=== PATIENT | male | born 1945 | race Caucasian/White ===

== ENCOUNTER 2017-04-20 15:21 | Emergency (ER) | payer OTHER, MEDICAID ==
[~2017-04-20] VITALS: Ht 182.9 cm; Wt 99.8 kg
[2017-04-20 15:33] VITALS: BP 154/78
[2017-04-20] MEDS ORDERED: CLINDAMYCIN 600 MG/4 ML VL IM ONE (15:45)
[2017-04-20] MEDS ORDERED: LEVOFLOXACIN 250 MG TAB PO ONE (15:45)
== END 2017-04-20 16:24 | disposition home or self-care (01) ==
LOC: EDBD 15:21 → ER 15:21
DX: H00.036 Abscess of eyelid left eye, unspecified eyelid (principal); Z88.0 Allergy status to penicillin; I10 Essential (primary) hypertension; Z90.49 Acquired absence of other specified parts of digestive tract
CPT/HCPCS: 96372

== ENCOUNTER 2019-05-06 13:22 | Inpatient (IN) | payer OTHER, MEDICAID ==
[~2019-05-06] VITALS: Ht 172.7 cm; Wt 100.9 kg
[~2019-05-06 13:22] MED LIST: MET5XLT PO; RIVA10TA PO
[2019-05-06 14:12] LABS: Basophils # (auto) 0.1 uL; Basophils % (auto) 1.1 % (0.0-2.0); Eosinophils # (auto) 0.4 uL; Eosinophils % (auto) 4.5 % (0.0-7.0); Hematocrit 42.1 % (41.0-53.0); Hemoglobin 14.1 g/dL (13.5-17.5); Lymphocytes # (auto) 2.2 uL; Lymphocytes % (auto) 24.1 % (10.0-50.0); Mean Corpuscular Hemoglobin 30.8 pg (28.0-32.0); Mean Corpuscular Hgb Conc. 33.4 g/dL (32.0-36.0); Mean Corpuscular Volume 92.1 fL (80.0-100.0); Monocytes # (auto) 0.6 uL; Neutrophils # (auto) 5.8 uL; Neutrophils % (auto) 63.3 % (37.0-80.0); Nucleated Red Blood Cells % 0.1 %; Platelet Count (auto) 229 10^3/uL (140-450); Red Blood Cells 4.57 10^6/uL (4.5-5.90); Red Cell Distribution Width 13.9 % (11.8-14.3); White Blood Cell 9.2 10^3/uL (4.4-10.8)
[2019-05-06 14:18] LABS: Albumin 3.4 g/dL (3.4-5.0); Anion Gap 4 (5-15); BUN/Creatinine Ratio 19.6; Blood Urea Nitrogen 21 mg/dL (7-18); Calcium 9.2 mg/dL (8.5-10.1); Carbon Dioxide 28 mmol/L (21-32); Chloride 106 mmol/L (98-107); GFR African American 87 mL/min; GFR Non-African American 72 mL/min; Glucose 90 mg/dL (74-106); Magnesium 2.4 mg/dL (1.6-2.6); Potassium 4.2 mmol/L (3.5-5.1); Sodium 138 mmol/L (136-145)
[2019-05-06 14:23] LABS: Alanine Aminotransferase 22 U/L (16-61); Alkaline Phosphatase 63 U/L (45-117); Aspartate Aminotransferase 20 U/L (15-37); Bilirubin, Total 0.5 mg/dL (0.2-1.0); Total Protein 7.8 g/dL (6.4-8.2)
[2019-05-06 14:39] LABS: Urine WBC None Seen /hpf (0 - 3)
[2019-05-06 15:29] LABS: Urine Bacteria NONE SEEN /hpf (None Seen); Urine Blood Negative /uL (Negative); Urine Specific Gravity 1.021 (1.001-1.035)
[2019-05-06] MEDS ORDERED: ENALAPRIL MALEATE 2.5 MG TAB PO ONE (17:30)
[2019-05-06] MEDS ORDERED: FUROSEMIDE 20 MG/2 ML VIAL IV ONE (17:30)
[2019-05-06] MEDS ORDERED: NITROGLYCERIN 0.4 MG SL TAB SL PRN (17:30)
[2019-05-06] MEDS ORDERED: MORPHINE SULF INJ 2 MG/ML SYRINGE 1ML IV PRN (17:30)
--- NOTE | 2019-05-06 19:40 | NUR ---
Telemetry admit from ER CARLOS KELLER admitted to Telemetry unit . Patient oriented to unit, room, bed, and unit policies regarding patient care and visiting hours. Patient now on continuous telemetry monitoring, tele box # 43 and telemetry reading on arrival to unit is SR 61. Patient weighed by bed scale and encouraged to call if they need something. All questions and concerns addressed, patient verbalized understanding.
[2019-05-06 20:09] VITALS: BP 183/73
[2019-05-06 22:00] VITALS: BP 163/80
[2019-05-06] MEDS ORDERED: POLYETHYLENE GLYCOL 17 GM PWDR PO ONE (22:15)
[2019-05-06 23:49] VITALS: BP 141/60
[2019-05-07 00:29] LABS: Alcohol, Urine < 3.0 mg/dL (0-5); Amphetamine Screen, Urine NEGATIVE (NEGATIVE); Barbiturate Scree,Urine NEGATIVE (NEGATIVE); Benzodiazephine Screen, Urine NEGATIVE (NEGATIVE); Cannabinoid Screen, Urine NEGATIVE (NEGATIVE); Cocaine Screen, Urine NEGATIVE (NEGATIVE); Opiate Scree,Urine NEGATIVE (NEGATIVE); Phencyclidine Screen, Urine NEGATIVE (NEGATIVE)
[2019-05-07 05:00] VITALS: BP 108/51
[2019-05-07 06:58] LABS: Basophils # (auto) 0.1 uL; Basophils % (auto) 0.7 % (0.0-2.0); Eosinophils # (auto) 0.5 uL; Eosinophils % (auto) 4.5 % (0.0-7.0); Hemoglobin 14.1 g/dL (13.5-17.5); Lymphocytes # (auto) 2.3 uL; Lymphocytes % (auto) 21.7 % (10.0-50.0); Mean Corpuscular Hemoglobin 31.1 pg (28.0-32.0); Mean Corpuscular Hgb Conc. 33.7 g/dL (32.0-36.0); Mean Corpuscular Volume 92.4 fL (80.0-100.0); Monocytes # (auto) 0.8 uL; Monocytes % (auto) 7.6 % (0.0-12.0); Neutrophils # (auto) 7.1 uL; Neutrophils % (auto) 65.5 % (37.0-80.0); Nucleated Red Blood Cells % 0.1 %; Platelet Count (auto) 232 10^3/uL (140-450); Red Blood Cells 4.55 10^6/uL (4.5-5.90); White Blood Cell 10.8 10^3/uL (4.4-10.8)
[2019-05-07 07:26] LABS: Calcium 8.8 mg/dL (8.5-10.1); Potassium 3.9 mmol/L (3.5-5.1)
[2019-05-07 07:31] LABS: BUN/Creatinine Ratio 19.8
--- NOTE | 2019-05-07 08:00 | NUR ---
Opening Shift Note Assumed care of patient, awake and alert. No S/S of distress/SOB or pain. Instructed on POC and to call for assist PRN, will continue to monitor for changes Q1hr and PRN.
[2019-05-07 09:00] VITALS: BP 130/47
[2019-05-07] MEDS: ENALAPRIL MALEATE 2.5 MG TAB PO SCH (09:44)
[2019-05-07] MEDS: FAMOTIDINE 20 MG TAB PO SCH (09:44)
--- NOTE | 2019-05-07 11:00 | NUR ---
Spoke with [employer] broadcast music librarian casework manager re: consult for information about advance directives and patient being homeless.
[2019-05-07 13:00] VITALS: BP 133/55
--- NOTE | 2019-05-07 15:11 | NUR ---
Hospitalist Rounds Dr. Kelly at bedside, new orders received.
[2019-05-07] MEDS ORDERED: LACTULOSE 20Gm/30ML SOLN PO ONE (15:15)
[2019-05-07] MEDS ORDERED: FUROSEMIDE 40 MG/4 ML VIAL IV ONE (15:15)
[2019-05-07] MEDS ORDERED: POTASSIUM CHL 10 Meq TABLET PO ONE (15:15)
[2019-05-07] MEDS ORDERED: ENOXAPARIN SOD 40 MG/0.4 ML SYRINGE SC ONE (15:15)
--- NOTE | 2019-05-07 16:00 | NUR ---
Patient had episodes of loose stools after administration of Lactulose PO.
[2019-05-07 17:00] VITALS: BP 131/64
--- NOTE | 2019-05-07 20:15 | NUR ---
Opening Shift Note Received report from Luisa, charge nurse. Assumed care of patient, awake and alert, resting in bed. No S/S of distress/SOB or pain. Instructed on POC and to call for assist PRN, will continue to monitor for changes Q1hr and PRN. Bed placed in lowest position, bed alarm turned on and call light within reach.
[2019-05-07 22:00] VITALS: BP 115/47
[2019-05-07] MEDS: LACTULOSE 20Gm/30ML SOLN PO SCH (22:32)
--- NOTE | 2019-05-08 | NUR ---
ROUNDS PATIENT IS RESTING IN BED WITH EYE CLOSED, NO DISTRESS NOTED.
[2019-05-08 05:22] VITALS: BP 145/54
--- NOTE | 2019-05-08 06:20 | NUR ---
ROUNDS PATIENT IS RESTING IN BED, ALERT AND AWAKE, NO DISTRESS NOTED AND PATIENT DENIES PAIN. OXYGEN SATURATION OF 95% ON ROOM AIR. PATIENT STATES NO BOWEL MOVEMENT THIS SHIFT.
[2019-05-08 07:11] LABS: Anion Gap 9 (5-15); BUN/Creatinine Ratio 25.2; Blood Urea Nitrogen 28 mg/dL (7-18); Calcium 8.4 mg/dL (8.5-10.1); Carbon Dioxide 27 mmol/L (21-32); Chloride 106 mmol/L (98-107); GFR African American 84 mL/min; GFR Non-African American 69 mL/min; Glucose 93 mg/dL (74-106); Potassium 3.8 mmol/L (3.5-5.1); Sodium 142 mmol/L (136-145)
--- NOTE | 2019-05-08 08:00 | NUR ---
Opening Shift Note Assumed care of patient, awake and alert. No S/S of distress/SOB or pain. Still with bilateral lower extremity edema. Instructed on POC and to call for assist PRN, will continue to monitor for changes Q1hr and PRN.
[2019-05-08 09:00] VITALS: BP 145/78
--- NOTE | 2019-05-08 10:00 | NUR ---
Patient stated that he does not have a permanent place to go and that he's been estranged with his family. Social service consult was placed upon admit for homelessness. Addendum: 05/08/19 at 1805 by Vini Avalos RN patient was estranged from his family.
[2019-05-08] MEDS: FUROSEMIDE 40 MG/4 ML VIAL IV SCH (10:05)
[2019-05-08] MEDS: LACTULOSE 20Gm/30ML SOLN PO SCH ×2 (10:05→21:31)
[2019-05-08] MEDS: ENOXAPARIN SOD 40 MG/0.4 ML SYRINGE SC SCH (10:05)
[2019-05-08] MEDS: POTASSIUM CHL 10 Meq TABLET PO SCH (10:06)
[2019-05-08] MEDS: FAMOTIDINE 20 MG TAB PO SCH (10:06)
[2019-05-08] MEDS: ENALAPRIL MALEATE 2.5 MG TAB PO SCH (10:06)
[2019-05-08 13:00] VITALS: BP 154/58
[2019-05-08 17:00] VITALS: BP 117/43
--- NOTE | 2019-05-08 18:32 | NUR ---
Patient able to ambulate around the room and to the bathroom with the use of cane.
--- NOTE | 2019-05-08 19:10 | NUR ---
Opening Shift Note Received report from matthieu Martini RN. Assumed care of patient, awake and alert, resting in bed. No S/S of distress/SOB or pain. Instructed on POC and to call for assist PRN, will continue to monitor for changes Q1hr and PRN. Bed placed in lowest position, bed alarm turned on and call light within reach.
--- NOTE | 2019-05-08 20:00 | NUR ---
ROUNDS Brought some supplies and new bedsheets and blankets for patient. Offered to assist a shower for patient, but patient refused.
--- NOTE | 2019-05-08 21:30 | NUR ---
PATIENT REFUSED LACTULOSE, STATES THAT HE IS HAVING BOWEL MOVEMENT JUST FINE.
[2019-05-08 22:00] VITALS: BP 138/55
[2019-05-09 05:42] VITALS: BP 139/69
--- NOTE | 2019-05-09 06:37 | NUR ---
ROUNDS PATIENT IS RESTING IN BED, ALERT AND ORIENTED, NO DISTRESS NOTED AND PATIENT DENIES PAIN.
[2019-05-09 09:00] VITALS: BP 139/60
[2019-05-09] MEDS: ENOXAPARIN SOD 40 MG/0.4 ML SYRINGE SC SCH (09:39)
[2019-05-09] MEDS: FUROSEMIDE 40 MG/4 ML VIAL IV SCH (09:39)
[2019-05-09] MEDS: POTASSIUM CHL 10 Meq TABLET PO SCH (09:39)
[2019-05-09] MEDS: FAMOTIDINE 20 MG TAB PO SCH (09:39)
[2019-05-09] MEDS: ENALAPRIL MALEATE 2.5 MG TAB PO SCH (09:40)
[2019-05-09] MEDS: LACTULOSE 20Gm/30ML SOLN PO SCH (09:46)
--- NOTE | 2019-05-09 11:10 | NUR ---
Pt seen by Dr. Kelly, she said she will discharge pt to SNF.
[2019-05-09 13:00] VITALS: BP 119/43
[2019-05-09] MEDS ORDERED: FURO40TA4 PO (13:21)
[2019-05-09] MEDS ORDERED: ENA2.5T PO (13:21)
[2019-05-09] MEDS ORDERED: POTA-167 PO (13:21)
[2019-05-09] MEDS ORDERED: ASPI81CH43 PO (13:21)
--- NOTE | 2019-05-09 14:48 | NUR ---
pain pt complaining of right hip pain, pt has no pain medication, Dr. Kelly ordered to give tylenol 650mg po one dose.
[2019-05-09] MEDS ORDERED: ACETAMINOPHEN 325 MG TAB PO ONE (15:00)
--- NOTE | 2019-05-09 15:34 | NUR ---
paged Physical therapy to evaluate the pt.
--- NOTE | 2019-05-09 15:47 | NUR ---
assessment Patient is a 73 year old male who is alert and oriented. Prior to admission patient was homeless. Patient has a fww, wheelchair, and cane for home use. I informed patient he has a ss consult for SNF evaluation. Patient is refusing SNF. Patient is refusing room and board. [employer] social worker has provided patient with homeless resources and patient signed homeless waiver and it has been placed in patients chart. Addendum: 05/09/19 at 1616 by Jennie BERRY Amended: Links added.
--- NOTE | 2019-05-09 16:00 | NUR ---
PT WALK IN THE HALLWAY WITH PHYSICAL THERAPY.
--- NOTE | 2019-05-09 16:06 | NUR ---
SPOKE WITH MAR CABRERA STACK MATCHER, PER MAR PT REFUSED SNF PLACEMENT, PT IS GOING HOME AND WILL BE GIVEN A TAXI VOUCHER. Addendum: 05/09/19 at 1610 by Mirna Hidalgo RN DR. GALVAN MADE AWARE, SHE ORDER TO CHANGE DISCHARGE TO HOME AND TO CALL PRESCRIPTION TO [facility] FOR HOME MEDICATION.
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
--- NOTE | 2019-05-09 16:15 | NUR ---
CALLED IN PRESCRIPTION TO [facility], SPOKE WITH PAULETTE.
[2019-05-09 16:55] VITALS: BP 121/56
--- NOTE | 2019-05-09 17:22 | NUR ---
PAGED MEDIA SUPERVISOR ASSISTANT HOUSEKEEPING MANAGER, PT NEEDS HELP WITH ROOM AND BOARD. WAITING FOR CALL BACK Addendum: 05/09/19 at 1726 by Mirna Hidalgo RN PT DECIDED TO FIND ROOM AND BOARD.
--- NOTE | 2019-05-09 17:50 | NUR ---
DISCHARGE WOUND PHOTO TAKEN.
--- NOTE | 2019-05-09 17:51 | NUR ---
LISSET CAME AND TALK TO THE PT AND PT DECIDED TO GO HOME AFTER DINNER, PER PT HE WILL CALL ROOM AND BOARD TOMORROW MORNING, PT HAS INFORMATION OF ROOM AND BOARD IN [facility].
--- NOTE | 2019-05-09 18:31 | NUR ---
CALLED TAXI FOR RIDE HOME, ETA IN 20MINUTES.
--- NOTE | 2019-05-09 19:10 | NUR ---
care endorsed to NANDO Turpin pt still waiting for taxi ride.
--- NOTE | 2019-05-09 19:29 | NUR ---
Discharge instructions given as ordered BY DAY SHIFT RN ANTHONY. Encourage to follow up with PMD as instructed. All questions and concerns addressed. Patient verbalized understanding. Medication reconciliation form completed and copy given to patient. IV removed with catheter intact, pressure dressing applied. Telemetry unit returned to ICU. Patient WALKED to vehicle with all personal belongings, accompanied by staff. No distress noted at time of departure.
== END 2019-05-09 19:05 | disposition home or self-care (01) | DRG 308 ==
LOC: EDUNIT# 13:22 → EDBD 13:22 → ER 13:24 → TELE-CENTR 13:25
PROVIDERS: ADMIT Nurse Practitioner Acute Care; ATTEND Nurse Practitioner Acute Care
DX: R00.1 Bradycardia, unspecified (principal); I50.43 Acute on chronic combined systolic (congestive) and diastolic (congestive) heart failure; I11.0 Hypertensive heart disease with heart failure; M79.89 Other specified soft tissue disorders; N28.9 Disorder of kidney and ureter, unspecified; I70.0 Atherosclerosis of aorta; Z96.641 Presence of right artificial hip joint; M81.0 Age-related osteoporosis without current pathological fracture; E66.01 Morbid (severe) obesity due to excess calories; Z95.0 Presence of cardiac pacemaker; Z68.33 Body mass index [BMI] 33.0-33.9, adult; Z59.0 Homelessness; Z79.01 Long term (current) use of anticoagulants; Z82.49 Family history of ischemic heart disease and other diseases of the circulatory system; Z90.49 Acquired absence of other specified parts of digestive tract
CPT/HCPCS: 36415; 71045; 80048; 80053; 80061; 80307; 81001; 83036; 83735; 83880; 84443; 84484; 85025; 85379; 87081; 93005; 93306; 93970; 94761; G0378

== ENCOUNTER 2019-05-10 20:46 | Inpatient (IN) | payer OTHER, MEDICAID ==
[~2019-05-10] VITALS: Ht 182.9 cm; Wt 102.2 kg
[~2019-05-10 20:46] MED LIST changes: +ASPI81CH43 PO; +ENA2.5T PO; +FURO40TA4 PO; -MET5XLT PO; +POTA-167 PO; -RIVA10TA PO
[2019-05-10 22:08] LABS: Basophils # (auto) 0.1 uL; Eosinophils # (auto) 0.3 uL; Hematocrit 43.3 % (41.0-53.0); Hemoglobin 14.4 g/dL (13.5-17.5); Lymphocytes # (auto) 1.9 uL; Lymphocytes % (auto) 19.3 % (10.0-50.0); Mean Corpuscular Hemoglobin 30.5 pg (28.0-32.0); Mean Corpuscular Hgb Conc. 33.1 g/dL (32.0-36.0); Mean Corpuscular Volume 92.1 fL (80.0-100.0); Monocytes # (auto) 0.8 uL; Monocytes % (auto) 8.6 % (0.0-12.0); Neutrophils # (auto) 6.6 uL; Neutrophils % (auto) 68.1 % (37.0-80.0); Nucleated Red Blood Cells % 0.1 %; Platelet Count (auto) 250 10^3/uL (140-450); Red Cell Distribution Width 13.8 % (11.8-14.3); White Blood Cell 9.6 10^3/uL (4.4-10.8)
[2019-05-10 22:26] LABS: Alanine Aminotransferase 29 U/L (16-61); Albumin 3.8 g/dL (3.4-5.0); Anion Gap 9 (5-15); Aspartate Aminotransferase 20 U/L (15-37); BUN/Creatinine Ratio 23.9; Blood Urea Nitrogen 56 mg/dL (7-18); Calcium 7.7 mg/dL (8.5-10.1); Carbon Dioxide 27 mmol/L (21-32); Chloride 100 mmol/L (98-107); GFR African American 35 mL/min; GFR Non-African American 29 mL/min; Glucose 91 mg/dL (74-106); Potassium 4.6 mmol/L (3.5-5.1); Sodium 136 mmol/L (136-145)
[2019-05-10 22:31] LABS: Alkaline Phosphatase 64 U/L (45-117); Bilirubin, Total 0.3 mg/dL (0.2-1.0); Total Protein 7.9 g/dL (6.4-8.2)
[2019-05-11] VITALS (7 sets, daily range): BP systolic 126–162; BP diastolic 52–83
[2019-05-11] MEDS ORDERED: SODIUM CHLORIDE 0.9% 250 ML IV ONE (01:00)
[2019-05-11] MEDS ORDERED: FAMOTIDINE 20 MG TAB PO ONE (01:00)
[2019-05-11 01:43] LABS: Amylase 40 U/L (25-115); Lipase 116 U/L (73-393)
[2019-05-11 01:45] LABS: INR 0.93 (0.9-1.15); Partial Thromboplastin Time 28.3 sec (23.64-32.05)
[2019-05-11] MEDS ORDERED: SODIUM CHLORIDE 0.9% 1,000 ML IV ONE (01:45)
[2019-05-11 04:26] LABS: Urine Bacteria NONE SEEN /hpf (None Seen); Urine Blood Negative /uL (Negative); Urine WBC <1 /hpf (0 - 3)
[2019-05-11] MEDS ORDERED: TEMAZEPAM 15 MG CAP PO PRN (04:30)
[2019-05-11] MEDS ORDERED: ALBUTEROL SULF 2.5 MG/0.5ML(0.5%) NEB SOLN NEB PRN (04:30)
[2019-05-11] MEDS ORDERED: ONDANSETRON HCL 4 MG/2 ML VIAL IV PRN (04:30)
[2019-05-11] MEDS ORDERED: ACETAMINOPHEN 325 MG TAB PO PRN (04:30)
--- NOTE | 2019-05-11 05:50 | NUR ---
Respiratory note: ASSESSED PT FOR PRN TX. NOT INDICATED AT THIS TIME. HR 56, SPO2 95 RA BSC, RR 16. NO RESP DISTRESS NOTED. PT KNOWS TO HAVE RT PAGED IF TX NEEDED.
--- NOTE | 2019-05-11 08:30 | NUR ---
MS admit from ER CARLOS KELLER admitted to tele/MS after SBAR received. Patient oriented to MARIA ISABEL MAHONEY, primary RN, unit, room, bed, and unit policies regarding patient care and visiting hours. Patient weighed by bed scale and encouraged to call if they need something. All questions and concerns addressed, patient verbalized understanding. Note: []
[2019-05-11] MEDS ORDERED: ENALAPRIL MALEATE 2.5 MG TAB PO SCH (10:00)
[2019-05-11] MEDS ORDERED: FUROSEMIDE 40 MG TAB PO SCH (10:00)
[2019-05-11] MEDS: PANTOPRAZOLE 40 MG TAB PO SCH (10:33)
--- NOTE | 2019-05-11 10:45 | NUR ---
Jeter catheter insertion Patient assessed and determined to be in need of jeter catheter. Order obtained from MD. Patient educated on catheter and reason for insertion. All questions answered. Jeter catheter 14 guage Icelandic inserted with clean sterile technique. Patient tolerated well.
[2019-05-11 10:51] LABS: Basophils # (auto) 0.1 uL; Basophils % (auto) 0.8 % (0.0-2.0); Eosinophils # (auto) 0.4 uL; Eosinophils % (auto) 5.7 % (0.0-7.0); Hematocrit 39.1 % (41.0-53.0); Hemoglobin 13.3 g/dL (13.5-17.5); Lymphocytes # (auto) 2.5 uL; Lymphocytes % (auto) 32.4 % (10.0-50.0); Mean Corpuscular Hemoglobin 31.2 pg (28.0-32.0); Mean Corpuscular Hgb Conc. 34.1 g/dL (32.0-36.0); Mean Corpuscular Volume 91.7 fL (80.0-100.0); Monocytes # (auto) 0.7 uL; Monocytes % (auto) 9.5 % (0.0-12.0); Neutrophils % (auto) 51.6 % (37.0-80.0); Nucleated Red Blood Cells % 0.2 %; Platelet Count (auto) 212 10^3/uL (140-450); Red Blood Cells 4.27 10^6/uL (4.5-5.90); White Blood Cell 7.7 10^3/uL (4.4-10.8)
--- NOTE | 2019-05-11 10:55 | NUR ---
Spoke with Dr. Benitez 75 cc of urine immediately out after Kang insertion. Patient previously urinated 300 cc of urine in urinal since admission.
[2019-05-11 11:24] LABS: Magnesium 2.8 mg/dL (1.6-2.6); Phosphorus 3.5 mg/dL (2.5-4.90)
[2019-05-11 11:29] LABS: Albumin 3.2 g/dL (3.4-5.0); Calcium 7.9 mg/dL (8.5-10.1); Potassium 3.9 mmol/L (3.5-5.1)
[2019-05-11 11:32] LABS: BUN/Creatinine Ratio 31.2; Bilirubin, Total 0.5 mg/dL (0.2-1.0); Total Protein 6.9 g/dL (6.4-8.2)
[2019-05-11] MEDS: SODIUM CHLORIDE 0.9% 1,000 ML IV SCH ×2 (11:56→21:21)
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
[2019-05-11] MEDS ORDERED: amLODIPine BESYLATE 5 MG TAB PO ONE (16:15)
--- NOTE | 2019-05-11 16:39 | NUR ---
Received referral to fax Mr. Angela's chart to [facility] for placement. Pt has agreed to this plan. Chart was faxed and a verification of receipt was returned. Called [facility] intake twice but there was no answer. Left two messages. Will call facility tomorrow and follow up.
--- NOTE | 2019-05-11 19:30 | NUR ---
Opening Shift Note Assumed care of patient, awake and alert. No S/S of distress/SOB or pain. Instructed on POC and to call for assist PRN, will continue to monitor for changes Q1hr and PRN. Call light within reach.
[2019-05-11] MEDS: hydrALAZINE HCL 10 MG TAB PO SCH (22:03)
--- NOTE | 2019-05-11 22:35 | NUR ---
Respiratory note: ASSESSED PT FOR PRN MED NEB AT THIS TIME, PT DENIES SOB AT THIS TIME, NO RESP DISTRESS NOTED. NO TX INDICATED. PULSE OX 94% ON RA, HR 59, RR 20, BILATERAL BS DECREASED.
[2019-05-12] VITALS (7 sets, daily range): BP systolic 136–154; BP diastolic 52–70
[2019-05-12] MEDS: SODIUM CHLORIDE 0.9% 1,000 ML IV SCH (03:00)
--- NOTE | 2019-05-12 05:39 | NUR ---
PATIENT REFUSED SECOND IV NEEDED FOR STRESS TEST. WILL TRY AGAIN.
[2019-05-12] MEDS: hydrALAZINE HCL 10 MG TAB PO SCH ×3 (06:29→21:43)
--- NOTE | 2019-05-12 07:19 | NUR ---
ENDORSED CARE TO NANDO Stahl, PATIENT RESTING IN BED COMFORTABLY, NO S/S OF PAIN OR DISTRESS. CALL LIGHT WITHIN REACH.
--- NOTE | 2019-05-12 07:20 | NUR ---
Opening Shift Note Assumed care of patient, awake and alert. No S/S of distress/SOB or pain. Instructed on POC and to call for assist PRN, will continue to monitor for changes Q1hr and PRN.
[2019-05-12 08:10] LABS: Basophils # (auto) 0.1 uL; Basophils % (auto) 1.1 % (0.0-2.0); Eosinophils # (auto) 0.4 uL; Eosinophils % (auto) 5.4 % (0.0-7.0); Hematocrit 41.1 % (41.0-53.0); Hemoglobin 13.8 g/dL (13.5-17.5); Lymphocytes % (auto) 25.5 % (10.0-50.0); Mean Corpuscular Hemoglobin 31.2 pg (28.0-32.0); Mean Corpuscular Hgb Conc. 33.6 g/dL (32.0-36.0); Mean Corpuscular Volume 92.9 fL (80.0-100.0); Monocytes # (auto) 0.6 uL; Monocytes % (auto) 7.8 % (0.0-12.0); Neutrophils # (auto) 4.8 uL; Neutrophils % (auto) 60.2 % (37.0-80.0); Nucleated Red Blood Cells % 0.1 %; Platelet Count (auto) 220 10^3/uL (140-450); Red Blood Cells 4.42 10^6/uL (4.5-5.90); Red Cell Distribution Width 13.8 % (11.8-14.3); White Blood Cell 7.9 10^3/uL (4.4-10.8)
[2019-05-12 08:18] LABS: BUN/Creatinine Ratio 22.2; Calcium 8.2 mg/dL (8.5-10.1); Potassium 4.7 mmol/L (3.5-5.1)
[2019-05-12] MEDS ORDERED: ADENOSINE 86 MG in GIVE UN-DILUTED 0 ML IV STA (08:19)
--- NOTE | 2019-05-12 09:00 | NUR ---
IV insertion IV access obtained, via clean sterile technique by inserting 22 gauge catheter at left forearm after 2 attempts. IV secured properly. No trauma to site. Patient tolerated well. NOTE: []
[2019-05-12] MEDS: PANTOPRAZOLE 40 MG TAB PO SCH (09:51)
[2019-05-12] MEDS: amLODIPine BESYLATE 5 MG TAB PO SCH (09:53)
--- NOTE | 2019-05-12 10:00 | NUR ---
Respiratory note: ASSESSED PT FOR PRN MEDNEB TX. HR 55, RR 14, POX 97% ON ROOM AIR. BREATH SOUNDS DIMINISHED THROUGHOUT. NO S/S OF RESPIRATORY DISTRESS. PT DENIES ANY SOB. MEDNEB TX NOT INDICATED AT THIS TIME. WROTE RT NAME AND PAGER NUMBER ON WHITEBOARD AND ADVISED PT TO CALL FOR RT IF FEELING SOB.
--- NOTE | 2019-05-12 10:20 | NUR ---
Received referral to find placement at [facility]. Faxed chart to facility. Today at 10:00 [facility] called to state they have accepted Mr Angela. Faxed to [facility] for authorization.
--- NOTE | 2019-05-12 10:31 | NUR ---
Jeter catheter dc'd Order to discontinue jeter catheter. Jeter dc'd with clean technique following deflation of balloon. Patient tolerated well with no complaints of pain. Continue care.
--- NOTE | 2019-05-12 11:17 | NUR ---
Stress Test Patient off floor for stress test.
--- NOTE | 2019-05-12 11:22 | NUR ---
FAXED SS ORDER TO [facility] FOR AUTH FOR [facility]
--- NOTE | 2019-05-12 20:11 | NUR ---
Respiratory note: ASSESSMENT FOR PRN MED NEB TX, PT PRESENTING NO RESPIRATORY DISTRESS. HR 57, SPO2 98% ON ROOM AIR, RR 16, BS DIMINISHED. PT AWARE TO HAVE RN PAGE RT IF MED NEB TX IS NEEDED. WILL CONTINUE TO MONITOR.
[2019-05-13] MEDS: hydrALAZINE HCL 10 MG TAB PO SCH ×2 (05:33→14:35)
[2019-05-13 05:37] VITALS: BP 114/49
--- NOTE | 2019-05-13 06:11 | NUR ---
ROUNDS PATIENT RESTING IN BED COMFORTABLY, EVEN AND UNLABORED RESPIRATIONS. NO S/S OF PAIN OR DISTRESS. CALL LIGHT WITHIN REACH.
[2019-05-13 07:02] LABS: Calcium 8.4 mg/dL (8.5-10.1); Magnesium 2.8 mg/dL (1.6-2.6); Potassium 4.2 mmol/L (3.5-5.1)
[2019-05-13 07:05] LABS: BUN/Creatinine Ratio 22.4
--- NOTE | 2019-05-13 07:30 | NUR ---
Opening Shift Note RECEIVED REPORT FROM NOC RN. Assumed care of patient, awake and alert. No S/S of distress/SOB or pain. BED IN LOWEST, LOCKED POSITION WITH SIDERAILS UP x2. Instructed on POC and to call for assist PRN, will continue to monitor for changes Q1hr and PRN.
[2019-05-13 08:20] VITALS: BP 142/60
[2019-05-13 09:23] VITALS: BP 142/60
[2019-05-13] MEDS: PANTOPRAZOLE 40 MG TAB PO SCH (09:53)
[2019-05-13] MEDS: amLODIPine BESYLATE 5 MG TAB PO SCH (09:54)
--- NOTE | 2019-05-13 11:00 | NUR ---
Respiratory note: note PT ASSESSED FOR PRN MED NEB TX. HR 90, RR 16, SPO2 98% ON 2L NC. NO RESPIRATORY DISTRESS NOTED. PT AWARE TO HAVE RT PAGED IF THEY BECOME SOB. Addendum: 05/13/19 at 1337 by Luigi Underwood, RT PT ASSESSED FOR PRN MED NEB TX. HR 64, RR 16, SPO2 92% ON RA. NO RESPIRATORY DISTRESS NOTED. PT AWARE TO HAVE RT PAGED IF THEY BECOME SOB.
[2019-05-13] MEDS ORDERED: PANT40T PO (11:34)
[2019-05-13] MEDS ORDERED: HYDR10TA26 PO (11:34)
[2019-05-13] MEDS ORDERED: AML5T PO (11:34)
[2019-05-13 13:00] VITALS: BP 135/66
--- NOTE | 2019-05-13 15:35 | NUR ---
re-assessment Per consult SNF placement. Per [facility] she has accepted pt to room 67-B and accepting MD is Dr. Crenshaw. [facility] transport set up transport with [facility] and to p/u pt at 1500. Reported to Wero COLLIER. Pt agrees [facility]. Patient agreed to discharge plan to [facility]. Addendum: 05/13/19 at 1537 by Jennie Torres Amended: Links added.
--- NOTE | 2019-05-13 17:12 | NUR ---
Discharge Transfers Patient is being transferred to [facility]. Patient is to follow up with accepting doctor at the receiving facility. IVs TO LEFT HAND AND LEFT FOREARM REMOVED WITH CATHETERS INTACT. PRESSURE DRESSINGS APPLIED TO BOTH SITES. PATIENT TOLERATED WELL. ALL QUESTIONS ANSWERED.
== END 2019-05-13 16:44 | DRG 682 ==
LOC: EDBD 20:46 → ER 20:49 → OVERFLOW 20:50 → CENTRAL 05-11 08:29
PROVIDERS: ADMIT Nurse Practitioner; ATTEND Internal Medicine
DX: N17.0 Acute kidney failure with tubular necrosis (principal); I50.43 Acute on chronic combined systolic (congestive) and diastolic (congestive) heart failure; J98.11 Atelectasis; I11.0 Hypertensive heart disease with heart failure; E66.9 Obesity, unspecified; J44.9 Chronic obstructive pulmonary disease, unspecified; I08.0 Rheumatic disorders of both mitral and aortic valves; K40.20 Bilateral inguinal hernia, without obstruction or gangrene, not specified as recurrent; Z91.19 Patient's noncompliance with other medical treatment and regimen; Z90.49 Acquired absence of other specified parts of digestive tract; Z59.0 Homelessness; Z82.49 Family history of ischemic heart disease and other diseases of the circulatory system; Z83.3 Family history of diabetes mellitus; Z68.30 Body mass index [BMI] 30.0-30.9, adult; Z79.899 Other long term (current) drug therapy
CPT/HCPCS: 36415; 71045; 74176; 78452; 80048; 80053; 81001; 82150; 83690; 83735; 83880; 84100; 84439; 84484; 85025; 85379; 85610; 85730; 87081; 93005; 93017; 96360; 97116; G0378; J0153